=== PATIENT | female | born 1995 | race Two or more races ===

== ENCOUNTER 2021-12-30 10:33 | Emergency (ER) | payer MEDICAID ==
[~2021-12-30] VITALS: Ht 149.9 cm; Wt 49.9 kg
[~2021-12-30 10:33] MED LIST: PREN-96 PO
[2021-12-30 11:19] LABS: Urine Bacteria NONE SEEN /hpf (None Seen); Urine Blood Negative /uL (Negative); Urine Mucus FEW (None Seen); Urine WBC <1 /hpf (0 - 5)
[2021-12-30 11:50] VITALS: BP 134/77
== END 2021-12-30 11:55 | disposition home or self-care (01) ==
LOC: ER 10:33
DX: O20.0 Threatened abortion (principal); Z79.899 Other long term (current) drug therapy; Z91.018 Allergy to other foods; Z3A.16 16 weeks gestation of pregnancy
CPT/HCPCS: 36415; 76805; 81001; 84702